=== PATIENT | female | born 1980 | race Two or more races ===

== ENCOUNTER 2023-08-26 19:26 | Emergency (ER) | payer MEDICAID, OTHER ==
[~2023-08-26] VITALS: Ht 160 cm; Wt 102.3 kg
[~2023-08-26 19:26] MED LIST: IBUP-2279 PO; PENI500T2 PO; PROM25TA7 PO
[2023-08-26 19:30] VITALS: BP 127/68; PULSE 73; RESP 16; TEMP 98.3
[2023-08-26] MEDS: ACETAMINOPHEN 500 MG TABLET PO ONE (21:15)
[2023-08-26] MEDS: IBUPROFEN 600 MG TABLET PO ONE (21:15)
[2023-08-26] MEDS ORDERED: ACET-66 PO (21:19)
[2023-08-26] MEDS ORDERED: IBUP-1554 PO (21:19)
== END 2023-08-26 21:29 | disposition home or self-care (01) ==
LOC: EMS 19:29
DX: S60.212A Contusion of left wrist, initial encounter (principal); Z98.890 Other specified postprocedural states; W19.XXXA Unspecified fall, initial encounter; Y93.89 Activity, other specified; Y92.89 Other specified places as the place of occurrence of the external cause; Y99.8 Other external cause status
CPT/HCPCS: 99284